=== PATIENT | female | born 1985 | race Caucasian/White ===

== ENCOUNTER 2017-10-26 18:56 | Emergency (ER) | payer BC, OTHER ==
[~2017-10-26] VITALS: Ht 157.5 cm; Wt 51.3 kg
--- NOTE | 2017-10-26 19:40 | NUR ---
DR CHRISTAL LAZAR MD AT BEDSIDE FOR MSE.
--- NOTE | 2017-10-26 21:03 | NUR ---
Patient discharged to home in stable conditon. Written and verbal after care instructions given. Patient verbalizes understanding of instructions. Pt ambulated w/ steady gait. denies SOB, denies pain. Pt took all personal belonings.
[2017-10-26 21:05] VITALS: BP 122/86
== END 2017-10-26 21:06 | disposition home or self-care (01) ==
LOC: ER 18:57
DX: J04.0 Acute laryngitis (principal)
CPT/HCPCS: 36415; 86403; 87070; A4663